=== PATIENT | female | born 1950 | race Caucasian/White ===

== ENCOUNTER 2017-01-31 16:15 | Observation (INO) | payer OTHER ==
--- NOTE | ~2017-01-31 | DS ---
Discharge Summary [facility] [address] [place]. [address] NAME: DAKOTA SAINZ : 46 STATUS : DIS Yogi PAT#: [id number] AGE: 66 ADM/REG DATE : 01/31/17 MR#: [id number] REPORT SERV DATE: 02/02/17 DICTATED BY: LALITHA CURTIS DATE: 02/01/17 REPORT STATUS : Draft TRANSCRIBED BY: MODL DATE: 02/01/17 ADMISSION DATE: 01/31/2017 DISCHARGE DATE: 02/01/2017 DISCHARGE DIAGNOSES: 1. Syncopal episode secondary to hypoglycemia. 2. Diabetes mellitus, A1c was 7.0. 3. BMI of 36.3. 4. Anxiety and depression. HISTORY OF PRESENT ILLNESS: This is a 66-year-old female patient, who came to the hospital with instruction of the primary care physician for direct inpatient care with syncopal episode. Please see dictated H and P done by Dr. Wren. HOSPITAL COURSE: She was admitted to the hospital with a syncopal episode, had an evaluation with CT scan of brain and echocardiogram. The evaluation has been negative. Her quality assurance monitor chassis has been showing sinus rhythm. She did have hypoglycemia with her syncopal episode mostly after her Lantus was increased to 32 units. She had been using 28 units, and then after that, she had couple times her sugar going down to 38. Here, we kept it under 28, and we stopped the glipizide and metformin. Her sugar is around 110s and 130s with diabetic diet. She is not compliant with the diet at all, she does not cook at home, she eats outside or she lives with frozen food. I explained to her about the intake amount and insulin use. Finally, she agreed to come in to diabetic education program for better sugar control. Also, we offered home health care, but she declined home health care. Had a long discussion about her insulin use and diabetic diet compliance. Therefore, we are going to stop her oral medication, continue the Lantus at 28 units, and her diet compliance is much needed for her blood sugar control. DISCHARGE MEDICATIONS: 1. Celexa 40 mg once a day. 2. Monopril 20 mg twice a day. 3. Hydrochlorothiazide 25 mg once a day. 4. Lantus 28, we are changing the use in the morning time. 5. Eye drops. 6. Zocor 40 mg once in the evening. 7. Fosamax 70 mg every Fridays. 8. Glipizide and metformin combination, discontinued on this admission. DISPOSITION: The patient is discharged to home, and again she declined home health care. Discharge Summary [place] [place] [address] [place]. [address] NAME: DAKOTA SAINZ : 46 STATUS : DIS Yogi PAT#: [id number] AGE: 66 ADM/REG DATE : 01/31/17 MR#: [id number] REPORT SERV DATE: 02/02/17 DICTATED BY: LALITHA CURTIS DATE: 02/01/17 REPORT STATUS : Draft TRANSCRIBED BY: FARTUN DATE: 02/01/17 MARÍA/FARTUN Lalitha Curtis M.D. / [id number] CC: Marilia Garcia M.D.
--- NOTE | ~2017-01-31 | HP ---
History And Physical [place] [address] [facility] [place]. [address] NAME: DAKOTA SAINZ : 46 STATUS : ADM Yogi PAT#: [id number] AGE: 66 ADM/REG DATE : 01/31/17 MR#: [id number] REPORT SERV DATE: 02/01/17 DICTATED BY: CLAYTON VELEZ DATE: 01/31/17 REPORT STATUS : Draft TRANSCRIBED BY: FARTUN DATE: 01/31/17 DATE OF ADMISSION: 01/31/2017 CHIEF COMPLAINT: Syncope. HISTORY OF PRESENT ILLNESS: This is a 66-year-old female with a past medical history of type 2 diabetes and hypertension that presented from her primary care's office referred to the ER after having one to two syncopal episodes approximately days ago. According to the patient, her Lantus was recently increased from 28 to 32 units a day and also the patient continued with her glipizide and metformin. She began to have some hypoglycemic episodes ranging from the low 30s to 50s, and according to the patient's primary care and progress note, the patient was informed to hold her glipizide and metformin. The patient apparently held it for one day, but then resumed that medication with her Lantus and continued to experience some nighttime/morning low blood sugars at low 30s. The patient was referred to the ER and was seen by nurse practitioner, Reece, who performed orthostatics that were nondiagnostic done per ER staff, and the hospitalists were called to admit the patient to the hospital. The patient denies any chest pain. No shortness of breath. No abdominal pain. No nausea or vomiting. No diarrhea. Denies any current pains. No subjective fever or chills. REVIEW OF SYSTEMS: Please refer to HPI. PAST MEDICAL HISTORY: Type 2 diabetes, hypertension, depression, hyperlipidemia, anxiety, history of basal ganglia CVA, osteoporosis, and mild renal insufficiency per PCP's progress note. PAST SURGICAL HISTORY: Cholecystectomy, bilateral ankle surgery, nasal surgery, breast implant with removal. SOCIAL HISTORY: No tobacco, alcohol, or illicit drugs. Lives at home alone. FAMILY HISTORY: Type 2 diabetes, hypertension. ALLERGIES: ALLERGIES TO FLAGYL. HOME MEDICATIONS: Alendronate 70 mg p.o. q. week, Celexa 40 mg p.o. daily, Trusopt 2% ophthalmic drop b.i.d., Monopril 20 mg p.o. b.i.d., Metaglip 5/500 two tabs p.o. b.i.d., hydrochlorothiazide 25 mg p.o. daily, glargine 32 units subcu q. evening, Latanoprost ophthalmic drop q.h.s., omega-3 fatty acid 1000 mg p.o. daily, Zocor 40 mg p.o. q. evening, ophthalmic drop b.i.d. PHYSICAL EXAMINATION: VITAL SIGNS: Temp is 98.5, initial blood pressure 176/90, current blood pressure 163/65 with a pulse of 90, respirations of 16, and saturating 97% on room air. GENERAL: The patient is alert and oriented x3, currently in no distress. Very pleasant. HEENT: Pupils equal, round, and reactive to light. Extraocular muscles are intact with History And Physical [address] [address] NAME: DAKOTA SANIZ : 46 STATUS : ADM Yogi PAT#: [id number] AGE: 66 ADM/REG DATE : 01/31/17 MR#: [id number] REPORT SERV DATE: 02/01/17 DICTATED BY: CLAYTON VELEZ DATE: 01/31/17 REPORT STATUS : Draft TRANSCRIBED BY: FARTUN DATE: 01/31/17 anicteric sclerae. CARDIOVASCULAR: S1, S2. Regular rate and rhythm. No murmurs, rubs, or gallops. No JVD. RESPIRATORY: Clear to auscultation bilaterally. No wheezes or crackles. No signs of tachypnea. ABDOMEN: Positive bowel sounds. Soft, nontender. No rebound. No fluid wave. No distention. Obese. EXTREMITIES: Warm. No edema. NEURO: Cranial nerves II through XII grossly intact. Moves all four extremities. No neuro focal deficits. SKIN: No appreciated trauma. LABORATORY DATA: Sodium 140, potassium 3.6, chloride 99, bicarb of 30, BUN of 27, creatinine of 1.11, glucose of 236, magnesium of 1.1. Troponin less than 0.02. White count of 8.5, with a hemoglobin of 13.7, platelet count 295. INR of 1. UA with a specific gravity of 1.029; 30 of protein; trace of ketones; negative nitrites; negative leukocyte esterase; 5 white blood cells. EKG with normal sinus rhythm, Q waves in the inferior lead, lead III. No ST elevation. IMAGING: Chest x-ray, no acute infiltrates, read by Dr. Peters. ASSESSMENT AND PLAN: 1. Syncope. 2. Hypoglycemia. 3. Hypertension. 4. History of type 2 diabetes. The patient will be admitted to a director of infection prevention under observation, will be admitted to Dr. Levon Brice. I suspect that the patient's syncope is secondary to her hypoglycemia. I recommend for the patient to stop her glipizide, and also, we will slightly decrease the patient's long-acting insulin. However, I recommend the patient to continue with metformin, but she will require a prescription for metformin at discharge by the discharge physician, Dr. Brice, when the patient's workup is complete. We will closely monitor blood sugars. Also, we will replace the patient's magnesium and check echocardiogram as well as placed on telemetry to rule out any underlying arrhythmias, although I suspect more so secondary to uncontrolled blood sugars. The patient's management and recommendations have been explained to the patient and also further recommendations per Dr. Brice pending. [facility]/FARTUN Clayton Velez M.D. / [id number] History And Physical [address] [address] NAME: DAKOTA SAINZ : 46 STATUS : ADM Yogi PAT#: [id number] AGE: 66 ADM/REG DATE : 01/31/17 MR#: [id number] REPORT SERV DATE: 02/01/17 DICTATED BY: CLAYTON VELEZ DATE: 01/31/17 REPORT STATUS : Draft TRANSCRIBED BY: FARTUN DATE: 01/31/17 CC: Marilia Adams M.D.
[2017-01-31 16:38] LABS: BASOPHILS 0.4 %; BASOPHILS ABSOLUTE 0.03 10/3/uL (0.0-0.16); EOSINOPHILS 1.2 %; HEMATOCRIT 39.8 % (36.0-48.0); HEMOGLOBIN 13.7 g/dL (12.0-16.0); IMMATURE GRANULOCYTES 0.4 %; IMMATURE GRANULOCYTES ABSOLUTE 0.03 10/3/uL (0.0-0.11); LYMPHOCYTES 29.3 %; LYMPHOCYTES ABSOLUTE 2.49 10/3/uL (0.67-4.30); MEAN CORPUS HGB CONC 34.4 g/dL (32.0-36.0); MEAN CORPUSCULAR VOLUME 98.8 fL (80-100); MEAN PLATELET VOLUME 10.3 fL (9.2-13.0); MONOCYTES 10.4 %; MONOCYTES ABSOLUTE 0.88 10/3/uL (0.21-1.20); NEUTROPHILS 58.3 %; NEUTROPHILS ABSOLUTE 4.96 10/3/uL (2.02-8.40); PLATELET COUNT 295 10/3/uL (150-400); RBC DISTRIBUTION WIDTH 12.4 % (12.0-16.0); RED CELL COUNT 4.03 10/6/uL (4.0-5.6); WHITE BLOOD CELLS 8.5 10/3/uL (4.5-10.5)
[2017-01-31 16:39] LABS: MANUAL DIFF NO %
[2017-01-31 16:45] LABS: ASCORBIC ACID (UR NOT ORDER) NEG (NEG); BILIRUBIN, URINE NEGATIVE (NEG); ER URINALYSIS TAT 0 Hrs 11 Mins; KETONE, URINE TRACE MG/DL (NEG); LEUKOCYTE ESTERASE(NOT OR NEG (NEG); NITRITE (URINE) NEG (NEG); WBC (NOT ORDERED) (RFLEX) 5 (0-5)
[2017-01-31 16:48] LABS: PARTIAL THROMBO TIME 27.5 SEC (22.5-37.2); PROTIME (NOT ORD) 12.8 SEC (12.0-14.5)
[2017-01-31 16:56] LABS: BUN (BLOOD UREA NITROGEN) 27 MG/DL (6-23); CALCIUM, SERUM 9.3 MG/DL (8.5-10.4); CHEST PAIN PROFILE TAT 0 Hrs 22 Mins; CHLORIDE, SERUM 99 MMOL/L (96-112); CO2 (CARBON DIOXIDE) 30 MMOL/L (24-34); CREATININE 1.11 MG/DL (0.55-1.02); GFR AFRICAN AMERICAN 59 ML/MIN (>=60); GFR NON AFRICAN AMERICAN 51 ML/MIN (>=60); GLUCOSE, SERUM 236 MG/DL (60-99); POTASSIUM, SERUM 3.6 MMOL/L (3.5-5.3); SODIUM, SERUM 140 MMOL/L (135-148); TROPONIN I <0.02 NG/ML (<0.05)
[2017-01-31] MEDS ORDERED: CELEXA40 MG PO (16:57)
[2017-01-31] MEDS ORDERED: METAGLIP1 TA2 PO (16:57)
[2017-01-31] MEDS ORDERED: HYDROCHLOROT25 MG PO (16:57)
[2017-01-31] MEDS ORDERED: MONO20 PO (16:57)
[2017-01-31] MEDS ORDERED: ZOCOR40 PO (16:58)
[2017-01-31] MEDS ORDERED: FOSAMAX70 MG PO (16:58)
[2017-01-31] MEDS ORDERED: LANTUSCART SC (16:59)
[2017-01-31] MEDS ORDERED: TRUSOPT2 % OPH (16:59)
[2017-01-31] MEDS ORDERED: XALAT OPH (17:01)
[2017-01-31] MEDS ORDERED: FISH-EPA1000 MG PO (17:01)
[2017-01-31] MEDS ORDERED: LEVOBUNOLOL OPH (17:01)
[2017-02-01 07:47] LABS: BUN (BLOOD UREA NITROGEN) 27 MG/DL (6-23); CALCIUM, SERUM 8.7 MG/DL (8.5-10.4); CHLORIDE, SERUM 104 MMOL/L (96-112); CO2 (CARBON DIOXIDE) 30 MMOL/L (24-34); CREATININE 0.88 MG/DL (0.55-1.02); GFR AFRICAN AMERICAN 78 ML/MIN (>=60); GFR NON AFRICAN AMERICAN 68 ML/MIN (>=60); POTASSIUM, SERUM 3.4 MMOL/L (3.5-5.3); SODIUM, SERUM 143 MMOL/L (135-148)
[2017-02-01 07:50] LABS: GLUCOSE, SERUM 109 MG/DL (60-99)
== END 2017-02-01 15:56 | disposition home or self-care (01) ==
LOC: ER 16:15 → CDU1 18:04 → CDU2 19:28
PROVIDERS: Internal Medicine; Physician Assistant
DX: R55 Syncope and collapse (principal); I10 Essential (primary) hypertension; E11.649 Type 2 diabetes mellitus with hypoglycemia without coma; F32.9 Major depressive disorder, single episode, unspecified; E78.5 Hyperlipidemia, unspecified; E78.00 Pure hypercholesterolemia, unspecified; K21.9 Gastro-esophageal reflux disease without esophagitis; F41.9 Anxiety disorder, unspecified; Z86.73 Personal history of transient ischemic attack (TIA), and cerebral infarction without residual deficits; Z90.49 Acquired absence of other specified parts of digestive tract; Z98.890 Other specified postprocedural states
CPT/HCPCS: 70450; 71010; 72125; 80048; 81001; 82962; 83036; 83735; 84484; 85025; 85610; 85730; 93005; 93306; 96365; 96366; 99285; A9270-GY; G0378